=== PATIENT | female | born 1935 | race Caucasian/White ===

== ENCOUNTER → 2021-02-03 | Outpatient (CLI) | payer OTHER | END | disposition home or self-care (01) | LOC: LAB SHORT 11:44 → LAB 11:44 | DX: D48.5 Neoplasm of uncertain behavior of skin (principal) | CPT/HCPCS: 88305 ==

== ENCOUNTER 2021-05-13 22:09 | Emergency (ER) | payer OTHER ==
[~2021-05-13] VITALS: Ht 157.5 cm; Wt 71.7 kg
[2021-05-13 22:37] LABS: BASOPHILS ABSOLUTE AUTO 0.06 K/mm3 (0.00-0.23); BASOPHILS PERCENT AUTO 1 % (0-2); EOSINOPHILS ABSOLUTE AUTO 0.48 K/mm3 (0.00-0.68); EOSINOPHILS PERCENT AUTO 5 % (0-6); Hematocrit 37.2 % (33.0-51.0); IMMATURE GRAN ABSOLUTE AUTO 0.05 K/mm3 (0.00-0.10); IMMATURE GRAN PERCENT AUTO 1 % (0-1); LYMPHOCYTES ABSOLUTE AUTO 3.17 K/mm3 (0.84-5.20); LYMPHOCYTES PERCENT AUTO 32 % (21-46); MONOCYTES ABSOLUTE AUTO 0.81 K/mm3 (0.16-1.47); MONOCYTES PERCENT AUTO 8 % (4-13); Mean Corpuscular HGB 31.9 pg (26.0-34.0); Mean Corpuscular HGB Conc 34.9 g/dL (31.5-36.5); Mean Corpuscular Volume 91 fL (80-100); Mean Platelet Volume 9.3 fL (9.1-12.4); NEUTROPHILS PERCENT AUTO 55 % (41-73); Platelet Count 217 K/mm3 (150-400); RDW Coefficient Variation 11.5 % (11.7-14.2); RDW Standard Deviation 38.5 fL (35.1-46.3); Red Blood Cell Count 4.07 M/mm3 (3.80-5.20); White Blood Cell Count 10.07 K/mm3 (4.00-11.30)
[2021-05-13 23:21] LABS: Alanine Aminotransfer (ALT/SGP 31 U/L (12-78); Albumin, Blood 4.1 g/dL (3.4-5.0); Alk Phos 94 U/L (50-136); Anion Gap 7 mmol/L (6-16); Aspartate Aminotrans (AST/SGOT 20 U/L (12-37); Bilirubin, Total 0.2 mg/dL (0.1-1.0); Blood Urea Nitrogen 38 mg/dL (8-24); Bun/Creatinine Ratio 34.5 (12.0-20.0); CO2, Blood 23 mmol/L (21-32); Calcium, Blood 10.4 mg/dL (8.5-10.1); Chloride, Blood 103 mmol/L (98-108); Glomerular Filtration Rate 47 (60-); Glucose, Blood 122 mg/dL (70-99); Potassium, Blood 3.9 mmol/L (3.5-5.5); Sodium, Blood 133 mmol/L (136-145); Total Protein, Blood 8.1 g/dL (6.4-8.2); Troponin I <0.015 ng/mL (0.000-0.040)
[2021-05-13] MEDS ORDERED: SPIRONOLACTONE25 MG PO (23:22)
[2021-05-13] MEDS ORDERED: HYDHCL25 PO (23:22)
[2021-05-13] MEDS ORDERED: ERGO50000 PO (23:23)
[2021-05-13] MEDS ORDERED: METO100 PO (23:23)
[2021-05-13] MEDS ORDERED: HYDCHL25 PO (23:23)
[2021-05-13] MEDS ORDERED: SODBIC650 PO (23:24)
[2021-05-13] MEDS ORDERED: HYDRA50 PO (23:24)
[2021-05-13] MEDS ORDERED: LOSARTAN POTAS100 M1 PO (23:25)
[2021-05-13] MEDS ORDERED: Primidone50 MG PO (23:25)
== END 2021-05-14 01:05 | disposition home or self-care (01) ==
LOC: ER 22:09
PROVIDERS: Physician Assistant
DX: R07.89 Other chest pain (principal); I10 Essential (primary) hypertension; Z79.899 Other long term (current) drug therapy; Z87.891 Personal history of nicotine dependence
CPT/HCPCS: 36415; 71046; 80053; 84484; 85025; 85379; 93005; 93010; 99285-25

== ENCOUNTER → 2021-06-22 | Outpatient (CLI) | payer OTHER ==
[~2021-06-22] MED LIST: ERGO50000 PO; HYDCHL25 PO; HYDHCL25 PO; HYDRA50 PO; LOSARTAN POTAS100 M1 PO; METO100 PO; Primidone50 MG PO; SODBIC650 PO; SPIRONOLACTONE25 MG PO
[2021-06-22 17:14] LABS: Campylobacter Sp Not Detected (NOT DETECT); Cryptosporidium Not Detected (NOT DETECT); E. Coli O157 Not Detected (NOT DETECT); Enteroaggregative E. coli-EAEC Not Detected (NOT DETECT); Enteropathogenic E. coli-EPEC Not Detected (NOT DETECT); Enterotoxigenic E. coli-ETEC Not Detected (NOT DETECT); Plesiomonas Shigelloides Not Detected (NOT DETECT); Salmonella Sp Not Detected (NOT DETECT); Shiga Toxin-prod E. coli-STEC Not Detected (NOT DETECT); Shigella/Enteroin E. coli-EIEC Not Detected (NOT DETECT); Vibrio Cholerae Not Detected (NOT DETECT); Vibrio Sp Not Detected (NOT DETECT); Yersinia Enterocolitica Not Detected (NOT DETECT)
[2021-06-22 17:15] LABS: Adenovirus F 40/41 Not Detected (NOT DETECT); Astrovirus Not Detected (NOT DETECT); Cyclospora Cayetanensis Not Detected (NOT DETECT); Entamoeba Histolytica Not Detected (NOT DETECT); Giardia Lamblia Not Detected (NOT DETECT); Norovirus GI/GII Not Detected (NOT DETECT); Rotavirus A Not Detected (NOT DETECT); Sapovirus Not Detected (NOT DETECT)
== END ==
LOC: LAB SHORT 13:48 → LAB 13:48
PROVIDERS: Family Medicine
DX: R19.7 Diarrhea, unspecified (principal)
CPT/HCPCS: 0097U; 83993

== ENCOUNTER → 2021-12-01 | Outpatient (CLI) | payer OTHER ==
[2021-12-01 14:33] LABS: BASOPHILS ABSOLUTE AUTO 0.07 K/mm3 (0.00-0.23); BASOPHILS PERCENT AUTO 1 % (0-2); EOSINOPHILS ABSOLUTE AUTO 0.57 K/mm3 (0.00-0.68); EOSINOPHILS PERCENT AUTO 5 % (0-6); Hematocrit 36.7 % (33.0-51.0); IMMATURE GRAN ABSOLUTE AUTO 0.09 K/mm3 (0.00-0.10); IMMATURE GRAN PERCENT AUTO 1 % (0-1); LYMPHOCYTES ABSOLUTE AUTO 2.13 K/mm3 (0.84-5.20); LYMPHOCYTES PERCENT AUTO 20 % (21-46); MONOCYTES ABSOLUTE AUTO 0.97 K/mm3 (0.16-1.47); MONOCYTES PERCENT AUTO 9 % (4-13); Mean Corpuscular HGB 31.5 pg (26.0-34.0); Mean Corpuscular HGB Conc 35.4 g/dL (31.5-36.5); Mean Corpuscular Volume 89 fL (80-100); NEUTROPHILS ABSOLUTE AUTO 6.74 K/mm3 (1.96-9.15); NEUTROPHILS PERCENT AUTO 64 % (41-73); Platelet Count 237 K/mm3 (150-400); RDW Coefficient Variation 11.8 % (11.7-14.2); RDW Standard Deviation 37.7 fL (35.1-46.3); Red Blood Cell Count 4.13 M/mm3 (3.80-5.20); White Blood Cell Count 10.57 K/mm3 (4.00-11.30)
[2021-12-01 14:49] LABS: Bilirubin, Total 0.4 mg/dL (0.1-1.0); Bun/Creatinine Ratio 21.9 (12.0-20.0); Calcium, Blood 9.2 mg/dL (8.5-10.1); Creatinine, Blood 1.14 mg/dL (0.40-1.00); Globulin, Blood 4.1 g/dL (2.2-4.0); Magnesium, Blood 1.6 mg/dL (1.6-2.4); Potassium, Blood 4.2 mmol/L (3.5-5.5); Total Protein, Blood 8.1 g/dL (6.4-8.2)
== END | disposition home or self-care (01) ==
LOC: LAB SHORT 14:25 → LAB 14:25
PROVIDERS: Physician Assistant
DX: R53.83 Other fatigue (principal)
CPT/HCPCS: 80053; 83735; 83880; 84443; 85025

== ENCOUNTER → 2022-05-04 | Outpatient (CLI) | payer OTHER ==
[2022-05-04 12:15] LABS: Source, Urine Clean Catch
[2022-05-04 15:20] LABS: Appearance, Urine Clear (Clear); Bilirubin, Urine Neg (Neg); Blood, Urine 5+ (Neg); Color, Urine Yellow (P-Yellow); Glucose Qualitative, Urine Neg (Neg); Ketones, Urine Neg (Neg); Leukocyte Esterase, Urine Neg (Neg); Nitrite, Urine Neg (Neg); Protein, Urine 2+ (Neg); Urobilinogen, Urine NORM (Normal)
[2022-05-04 15:42] LABS: Bacteria Rare /hpf; Squamous Epithelial Cells Few /hpf (Few); White Blood Cells, Urine 0-2 /hpf (0-5)
== END | disposition home or self-care (01) ==
LOC: LAB 12:12 → LAB SHORT 12:12
PROVIDERS: Family Medicine
DX: R31.9 Hematuria, unspecified (principal)
CPT/HCPCS: 81001

== ENCOUNTER → 2022-06-30 | Outpatient (CLI) | payer OTHER | END | disposition home or self-care (01) | LOC: LAB SHORT 06:00 → LAB 06:00 → EDSTATUS 06-24 11:35 → LAB FUT 06-24 11:35 | PROVIDERS: Internal Medicine Nephrology | DX: N18.2 Chronic kidney disease, stage 2 (mild) (principal); D63.1 Anemia in chronic kidney disease; N25.81 Secondary hyperparathyroidism of renal origin; E55.9 Vitamin D deficiency, unspecified; R76.9 Abnormal immunological finding in serum, unspecified; R94.5 Abnormal results of liver function studies; R94.6 Abnormal results of thyroid function studies | CPT/HCPCS: 81050; 82530 ==

== ENCOUNTER 2022-11-04 15:42 | Emergency (ER) | payer OTHER ==
[~2022-11-04] VITALS: Ht 157.5 cm; Wt 72.6 kg
== END 2022-11-04 20:09 | disposition home or self-care (01) ==
LOC: ER 15:42
DX: R10.13 Epigastric pain (principal); R06.02 Shortness of breath; I11.0 Hypertensive heart disease with heart failure; I50.9 Heart failure, unspecified; Z87.891 Personal history of nicotine dependence; Z79.899 Other long term (current) drug therapy
CPT/HCPCS: 83880; 84484; 93005; 93010; 99284-25; J7030

== ENCOUNTER → 2022-11-04 | Outpatient (CLI) | payer OTHER ==
[2022-11-04 13:07] LABS: BASOPHILS ABSOLUTE AUTO 0.06 K/mm3 (0.00-0.23); BASOPHILS PERCENT AUTO 1 % (0-2); EOSINOPHILS ABSOLUTE AUTO 0.32 K/mm3 (0.00-0.68); EOSINOPHILS PERCENT AUTO 4 % (0-6); Hematocrit 36.4 % (33.0-51.0); Hemoglobin 13.3 g/dL (11.5-16.0); IMMATURE GRAN ABSOLUTE AUTO 0.06 K/mm3 (0.00-0.10); IMMATURE GRAN PERCENT AUTO 1 % (0-1); LYMPHOCYTES PERCENT AUTO 22 % (21-46); MONOCYTES ABSOLUTE AUTO 0.89 K/mm3 (0.16-1.47); MONOCYTES PERCENT AUTO 10 % (4-13); Mean Corpuscular HGB 31.7 pg (26.0-34.0); Mean Corpuscular HGB Conc 36.5 g/dL (31.5-36.5); Mean Corpuscular Volume 87 fL (80-100); Mean Platelet Volume 9.2 fL (9.1-12.4); NEUTROPHILS ABSOLUTE AUTO 5.67 K/mm3 (1.96-9.15); NEUTROPHILS PERCENT AUTO 63 % (41-73); Platelet Count 243 K/mm3 (150-400); RDW Coefficient Variation 11.7 % (11.7-14.2)
[2022-11-04 13:20] LABS: Albumin, Blood 4.4 g/dL (3.4-5.0); Bilirubin, Total 0.3 mg/dL (0.1-1.0); Bun/Creatinine Ratio 28.6 (12.0-20.0); Calcium, Blood 9.5 mg/dL (8.5-10.1); Creatinine, Blood 1.33 mg/dL (0.40-1.00); Globulin, Blood 4.2 g/dL (2.2-4.0); Potassium, Blood 4.2 mmol/L (3.5-5.5); Total Protein, Blood 8.6 g/dL (6.4-8.2)
== END | disposition home or self-care (01) ==
LOC: LAB SHORT 13:00 → LAB 13:00
PROVIDERS: Emergency Medicine
DX: R07.9 Chest pain, unspecified (principal)
CPT/HCPCS: 80053; 83690; 83880; 84484; 85025

== ENCOUNTER 2024-05-18 11:12 | Inpatient (IN) | payer OTHER ==
[~2024-05-18] VITALS: Ht 157.5 cm; Wt 72.4 kg
[~2024-05-18 11:12] MED LIST changes: +HYDRA25 PO; -HYDRA50 PO
[2024-05-18 11:48] LABS: BASOPHILS ABSOLUTE AUTO 0.04 K/mm3 (0.00-0.23); BASOPHILS PERCENT AUTO 0 % (0-2); EOSINOPHILS ABSOLUTE AUTO 0.01 K/mm3 (0.00-0.68); EOSINOPHILS PERCENT AUTO 0 % (0-6); Hemoglobin 12.3 g/dL (11.5-16.0); IMMATURE GRAN ABSOLUTE AUTO 0.06 K/mm3 (0.00-0.10); IMMATURE GRAN PERCENT AUTO 1 % (0-1); LYMPHOCYTES ABSOLUTE AUTO 0.55 K/mm3 (0.84-5.20); LYMPHOCYTES PERCENT AUTO 5 % (21-46); MONOCYTES ABSOLUTE AUTO 1.23 K/mm3 (0.16-1.47); MONOCYTES PERCENT AUTO 11 % (4-13); Mean Corpuscular HGB 31.5 pg (26.0-34.0); Mean Corpuscular HGB Conc 35.1 g/dL (31.5-36.5); Mean Corpuscular Volume 90 fL (80-100); Mean Platelet Volume 9.9 fL (9.1-12.4); NEUTROPHILS ABSOLUTE AUTO 8.88 K/mm3 (1.96-9.15); NEUTROPHILS PERCENT AUTO 82 % (41-73); Platelet Count 169 K/mm3 (150-400); RDW Coefficient Variation 12.4 % (11.7-14.2); RDW Standard Deviation 40.7 fL (35.1-46.3); White Blood Cell Count 10.77 K/mm3 (4.00-11.30)
[2024-05-18 11:48] LABS: Source, Urine Voided
[2024-05-18 11:50] LABS: Appearance, Urine Clear (Clear); Bilirubin, Urine Neg (Neg); Blood, Urine 1+ (Neg); Color, Urine Yellow (P-Yellow); Glucose Qualitative, Urine Neg (Neg); Ketones, Urine Neg (Neg); Leukocyte Esterase, Urine Neg (Neg); Nitrite, Urine Neg (Neg); Protein, Urine 2+ (Neg); Specific Gravity, Urine 1.015 (1.003-1.022); Urobilinogen, Urine NORM (Normal)
[2024-05-18 11:56] LABS: Bacteria Few /hpf; Hyaline Casts 0-2 /lpf (0-2); Squamous Epithelial Cells Few /hpf (Few); White Blood Cells, Urine 0-2 /hpf (0-5); Yeast/Fungi Urine Rare /hpf
[2024-05-18 12:07] LABS: Albumin, Blood 3.2 g/dL (3.4-5.0); Albumin/Globulin Ratio 0.8 (0.8-1.8); Bilirubin, Total 0.5 mg/dL (0.1-1.0); Bun/Creatinine Ratio 22.9 (12.0-20.0); Calcium, Blood 8.7 mg/dL (8.5-10.1); Creatinine, Blood 1.4 mg/dL (0.40-1.00); Globulin, Blood 4.2 g/dL (2.2-4.0); Potassium, Blood 3.9 mmol/L (3.5-5.5); Total Protein, Blood 7.4 g/dL (6.4-8.2)
[2024-05-18] MEDS ORDERED: Acetaminophen 500 MG Tab PO ONE (12:20)
[2024-05-18] MEDS ORDERED: NS 1,000 ML IV SCH ×2 (12:20→15:25)
[2024-05-18 12:28] LABS: Magnesium, Blood 1.7 mg/dL (1.6-2.4); Phosphorus, Blood 2.3 mg/dL (2.5-4.9)
[2024-05-18 13:53] LABS: Influenza A, PCR NEGATIVE (NEGATIVE); Influenza B, PCR NEGATIVE (NEGATIVE); Resp Syncytial Virus, PCR NEGATIVE (NEGATIVE); SARS-Cov-2 (COVID-19) PCR, MMC NEGATIVE (NEGATIVE)
[2024-05-18] MEDS ORDERED: Metoprolol Tartrate 1 MG/ML 5 ML VIAL IV PRN (14:15)
[2024-05-18] MEDS ORDERED: Vancomycin HCL 1,500 MG in NS 250 ML IV ONE (15:20)
[2024-05-18] MEDS ORDERED: Cefepime HCl 2,000 MG in NS 100 ML IV ONE (15:20)
[2024-05-18 17:43] LABS: Adenovirus Not Detected (NOT DETECT); Bordetella pertussis Not Detected (NOT DETECT); Chlamydophila pneumoniae Not Detected (NOT DETECT); Coronavirus 229E Not Detected (NOT DETECT); Coronavirus HKU1 Not Detected (NOT DETECT); Coronavirus NL63 Not Detected (NOT DETECT); Coronavirus OC43 Not Detected (NOT DETECT); Human Metapneumovirus Not Detected (NOT DETECT); Human Rhinovirus/Enterovirus Not Detected (NOT DETECT); Influenza A/2009-H1 Not Detected (NOT DETECT); Influenza A/H1 Not Detected (NOT DETECT); Influenza A/H3 Not Detected (NOT DETECT); Influenza B Not Detected (NOT DETECT); Mycoplasma pneumoniae Not Detected (NOT DETECT); Parainfluenza Virus 1 Not Detected (NOT DETECT); Parainfluenza Virus 2 Not Detected (NOT DETECT); Parainfluenza Virus 3 Not Detected (NOT DETECT); Parainfluenza Virus 4 Not Detected (NOT DETECT); Respiratory Syncytial Virus Not Detected (NOT DETECT); SARS-Cov-2 (COVID-19), BioFire Not Detected (NOT DETECT)
[2024-05-18 18:35] LABS: Automated CSF WBC Count 0.002 K/mm3 (0-5)
[2024-05-18 18:41] LABS: Automated CSF WBC Count 0.004 K/mm3 (0-5)
[2024-05-18 18:42] LABS: WBC Count, CSF 2 /mm3 (0-5); WBC Count, CSF 4 /mm3 (0-5)
[2024-05-18 18:43] LABS: RBC Count, CSF 1 /mm3 (0-0)
[2024-05-18 18:44] LABS: Appearance, CSF Clear (Clear); Color, CSF No Color (No Color)
[2024-05-18] MEDS ORDERED: Acetaminophen 325 MG TABLET PO PRN (18:45)
[2024-05-18 18:52] LABS: Appearance, CSF Clear (Clear); Color, CSF No Color (No Color); RBC Count, CSF 17 /mm3 (0-0)
[2024-05-18] MEDS ORDERED: Cefepime HCl 1,000 MG in NS 100 ML IV SCH (19:00)
[2024-05-18] MEDS ORDERED: Ampicillin Sod 2,000 MG in NS 100 ML IV SCH (19:00)
[2024-05-18] MEDS ORDERED: HyDROXyzine HCl 25 MG Tab PO SCH (21:00)
[2024-05-18] MEDS ORDERED: Primidone 50 MG Tab PO SCH (21:00)
[2024-05-18 21:28] VITALS: BP 137/50
[2024-05-18] MEDS ORDERED: PREG50 PO (22:21)
[2024-05-18] MEDS ORDERED: AMLO10 PO (22:22)
[2024-05-18] MEDS ORDERED: ATEN50 PO (22:23)
[2024-05-18] MEDS ORDERED: GLIP5ER PO ×2 (22:25→22:26)
[2024-05-18] MEDS ORDERED: FURO40 PO (22:27)
[2024-05-18 22:52] LABS: Cryptococcus Neoformans/Gattii Not Detected (NOT DETECT); Enterovirus Not Detected (NOT DETECT); Escherichia Coli K1 Not Detected (NOT DETECT); Haemophilus Influenza Not Detected (NOT DETECT); Herpes Simplex Virus 1 Not Detected (NOT DETECT); Herpes Simplex Virus 2 Not Detected (NOT DETECT); Human Herpesvirus 6 Not Detected (NOT DETECT); Human Parechovirus Not Detected (NOT DETECT); Listeria Monocytogenes Not Detected (NOT DETECT); Neisseria Meningitidis Not Detected (NOT DETECT); Streptococcus Agalactiae Not Detected (NOT DETECT); Streptococcus Pneumoniae Not Detected (NOT DETECT); Varicella Zoster Virus Not Detected (NOT DETECT)
[2024-05-18 23:29] VITALS: BP 124/49
--- NOTE | 2024-05-19 01:26 | NUR ---
ARRIVAL TO PCU/UPDATES: PT ARRIVED TO U-08 VIA [facility] AT APPROX 2120. STAFF SLID PT FROM [facility] TO BED. PT'S DAUGHTER & [id number] PRESENT ON ARRIVAL. NEURO: PT ALERT, ORIENTED X4 ALTHOUGH IS A POOR HISTORIAN. RELIES ON FAMILY MEMBERS TO DISCUSS MEDICAL HISTORY AND RECENT SYMPTOMS. PUPILS EQUAL, ROUND, REACTIVE TO LIGHT, 2MM BILAT. SPEECH IS MUMBLED, DIFFICULT TO UNDERSTAND AT TIMES; REPORTEDLY PT'S BASELINE DUE TO A TREMOR THAT HAS BEEN PRESENT X MANY YEARS. NUMBNESS/TINGLING TO BILAT LOWER EXTREMITIES, PT ENDORSES NEUROPATHY. GROUP HOME SUPERVISOR STRENGTH WEAK, LEFT SLIGHTLY WEAKER THAN RIGHT ON ASSESSMENT. CARDIAC: PT ARRIVES TO U W/O DILT GTT INFUSING, REPORTEDLY TURNED OFF IN ED DUE TO CONVERSION FROM AFIB TO NSR. HR 90'S, SINUS ON TELE. SBP 130'S, MAP >65. DENIES CHEST PAIN/PRESSURE. DENIES HX AFIB. PEDAL PULSES STRONG, BILAT 1+ EDEMA TO BLE NOTED. PT'S FAMILY STATES PT HAS NOT BEEN TAKING CARDIAC MEDICATIONS AT HOME DUE TO "BLOOD PRESSURE ISSUES." PT IS UNSURE IF SHE TOOK ANY MEDICATIONS PRIOR TO ARRIVING AT ED SHE LIVES ALONE AND WAS REPORTEDLY CONFUSED THIS AM. RESPIRATORY: SPO2 >90% ON 2L O2 VIA NC. ROOM AIR TRIAL W/ SPO2 86-89%. PT IS NORMALLY ON ROOM AIR AT HOME. LUNG SOUNDS CLEAR IN BILAT UPPER LOBES, DIM IN RLL, COARSE/DIM IN LLL. DRY RESEARCH DEVELOPMENT MANAGER WEAK COUGH NOTED. RESPIRATIONS ARE EVEN, UNLABORED AT REST. DYSPNEA W/ EXERTION. GI/: WNL. BT+ X4 QUADRANTS. ABD SOFT, NONTENDER ON PALPATION. LAST BM 05/17/24. PT CONTINENT, ABLE TO VOID ON BSC. URINE YELLOW/CLEAR W/O FOUL ODOR NOTED. SKIN: OVERALL INTACT. NO BRUISES, WOUNDS, OR PRESSURE INJURIES ON ADMISSION. SKIN APPEARS FLUSHED, WARM TO THE TOUCH. PT/FAMILY ORIENTED TO ROOM/UNIT/CALL LIGHT. EDUCATED ON FIRE SAFETY/IGNITION RISKS; NO IGNITION SOURCES PRESENT ON ADMISSION, PT IS A FORMER SMOKER BUT QUIT 40+ YEARS AGO. UPDATE: PT'S HR SUSTAINING 130'S FROM APPROX [id number]. EKG COMPLETED. IVP LOPRESSOR ADMINISTERED X1 PER EMAR W/O RATE IMPROVEMENT. PT ASYMPTOMATIC, SLEEPING IN BED. CALL TO RESIDENT MD. RESIDENT MD TO BEDSIDE AT APPROX 2345, PT'S HR SUSTAINING 100-110'S AT THAT TIME. ORDERS FOR MAG & PHOS LEVELS TO BE DRAWN W/ AM LABS, THIS RN TO CALL MD IF HR SUSTAINS >110. TELE SHOWS SINUS-ST AT THIS TIME W/ RATE 90'S AT REST. OF NOTE, PT ALSO W/ INCREASED ORAL TEMP OF 101.6. TYLENOL ADMINISTERED PER EMAR. RECHECK OF 100.1. NO OTHER NEEDS AT THIS TIME, CALL LIGHT IN REACH. DAUGHTER AT BEDSIDE.
[2024-05-19 03:41] LABS: BASOPHILS ABSOLUTE AUTO 0.03 K/mm3 (0.00-0.23); BASOPHILS PERCENT AUTO 0 % (0-2); EOSINOPHILS ABSOLUTE AUTO 0.02 K/mm3 (0.00-0.68); EOSINOPHILS PERCENT AUTO 0 % (0-6); Hematocrit 32.4 % (33.0-51.0); Hemoglobin 11.1 g/dL (11.5-16.0); IMMATURE GRAN ABSOLUTE AUTO 0.07 K/mm3 (0.00-0.10); IMMATURE GRAN PERCENT AUTO 1 % (0-1); LYMPHOCYTES ABSOLUTE AUTO 0.82 K/mm3 (0.84-5.20); LYMPHOCYTES PERCENT AUTO 9 % (21-46); MONOCYTES ABSOLUTE AUTO 1.11 K/mm3 (0.16-1.47); MONOCYTES PERCENT AUTO 12 % (4-13); Mean Corpuscular HGB Conc 34.3 g/dL (31.5-36.5); Mean Corpuscular Volume 91 fL (80-100); Mean Platelet Volume 9.7 fL (9.1-12.4); NEUTROPHILS ABSOLUTE AUTO 7.01 K/mm3 (1.96-9.15); NEUTROPHILS PERCENT AUTO 77 % (41-73); Platelet Count 149 K/mm3 (150-400); RDW Coefficient Variation 12.6 % (11.7-14.2); RDW Standard Deviation 42.2 fL (35.1-46.3); Red Blood Cell Count 3.58 M/mm3 (3.80-5.20); White Blood Cell Count 9.06 K/mm3 (4.00-11.30)
[2024-05-19 03:59] VITALS: BP 133/55
[2024-05-19 04:02] LABS: Alanine Aminotransfer (ALT/SGP 23 U/L (12-78); Albumin, Blood 2.7 g/dL (3.4-5.0); Albumin/Globulin Ratio 0.7 (0.8-1.8); Alk Phos 58 U/L (50-136); Anion Gap 14 mmol/L (3-11); Aspartate Aminotrans (AST/SGOT 30 U/L (12-37); Bilirubin, Total 0.4 mg/dL (0.1-1.0); Blood Urea Nitrogen 35 mg/dL (8-24); Bun/Creatinine Ratio 26.1 (12.0-20.0); CO2, Blood 21 mmol/L (21-32); Calcium, Blood 8.3 mg/dL (8.5-10.1); Chloride, Blood 106 mmol/L (98-108); Creatinine, Blood 1.34 mg/dL (0.40-1.00); Globulin, Blood 3.9 g/dL (2.2-4.0); Glomerular Filtration Rate 39 (60-); Glucose, Blood 180 mg/dL (70-99); Magnesium, Blood 1.8 mg/dL (1.6-2.4); Phosphorus, Blood 2.5 mg/dL (2.5-4.9); Potassium, Blood 3.6 mmol/L (3.5-5.5); Sodium, Blood 137 mmol/L (136-145); Total Protein, Blood 6.6 g/dL (6.4-8.2)
--- NOTE | 2024-05-19 05:16 | NUR ---
END OF SHIFT NOTE: SEE PREVIOUS NOTE FOR SHIFT DETAILS. PT'S HR HAS MAINTAINED 80-90'S THIS AM, SINUS ON TELE. BP STABLE. SPO2 >90% ON RA. TEMP HAS DECREASED TO 99.9 W/ TYLENOL. UP TO BSC TO VOID, 1P STAND/PIVOT TO COMMODE. DAUGHTER REMAINS AT BEDSIDE. NO OTHER NEEDS AT THIS TIME, CALL LIGHT IN REACH. WILL REPORT TO ONCOMING RN.
[2024-05-19 07:00] VITALS: BP 139/63
[2024-05-19 08:56] LABS: Anti-Xa UFH, PHA Monitoring <0.10 IU/mL; International Normalized Ratio 1.18; Prothrombin Time Results 12.5 Sec (9.7-11.5)
[2024-05-19] MEDS ORDERED: Metoprolol Tartrate 25 MG Tab PO SCH (09:00)
[2024-05-19] MEDS ORDERED: Enoxaparin 30 MG/0.3 ML SYR SC SCH (09:00)
[2024-05-19] MEDS ORDERED: Cefepime HCl 1,000 MG in NS 100 ML IV SCH (09:00)
[2024-05-19] MEDS ORDERED: Heparin Sodium,Porcine/0.5 NS 500 ML IV SCH (09:10)
[2024-05-19 11:58] VITALS: BP 139/56
[2024-05-19] MEDS ORDERED: NITR.4SL SL (12:01)
[2024-05-19] MEDS ORDERED: Estrace Vagin42.5 GM VAG (12:04)
--- NOTE | 2024-05-19 14:41 | NUR ---
Transfer of care. Pt alert, oriented, speech garbled at times. Tremors noted with movement. Pt up with sba in room. Pt reporting head, neck and back pain, medicated per emar. Pt febrile this am, medicated pt emar. Pt denies chest pain, nausea, dizziness and numb/tingling. Tele sinus, bp stable. Spo2 >90% on 1-2l o2 via nc. Abd, soft, nontender, +bt. Other vss. No other acute changes noted. Will continue to monitor. Report given to oncoming rn.
[2024-05-19 15:30] VITALS: BP 143/86
[2024-05-19] MEDS ORDERED: Heparin Sodium 5000 Units/ML 1ML MDV IV ONE ×2 (15:40→23:15)
[2024-05-19] MEDS ORDERED: Pantoprazole Sodium 40 MG Injection IV SCH (16:30)
[2024-05-19] MEDS ORDERED: Vancomycin HCL 1,000 MG in NS 250 ML IV ONE (18:00)
--- NOTE | 2024-05-19 18:19 | NUR ---
CARE ASSUMPTION/SHIFT SUMMARY CARE ASSUMED FROM KEYON Paulino RN THIS AFTERNOON. PT A&OX4. AFEBRILE THIS AFTERNOON. VSS. UP TO BSC W/ 1P ASSIST AND FWW TO VOID/HAVE SMALL BM. HEP GTT INFUSING PER EMAR. PT NAPPED THIS AFTERNOON. EATING DINNER IN RECLINER. CALL LIGHT IN REACH.
[2024-05-19 19:43] VITALS: BP 165/69
[2024-05-19] MEDS ORDERED: Ondansetron HCl 2 MG / ML 2ML Vial IV PRN (19:55)
[2024-05-19] MEDS ORDERED: Prochlorperazine Edisylate 10 mg Vial IV PRN (21:00)
--- NOTE | 2024-05-19 21:28 | NUR ---
PHYSICIAN CONTACT: PT C/O NAUSEA THIS EVENING. CALL PLACED TO RESIDENT X2. NEW ORDERS RECEIVED, SEE EMAR.
[2024-05-19 22:58] VITALS: BP 149/79
[2024-05-19] MEDS ORDERED: Dose Adjust by Pharmacy XX STA (23:14)
[2024-05-19] MEDS ORDERED: Diltiazem HCl 5 MG / ML 5ML Vial IV ONE (23:55)
[2024-05-20] VITALS (8 sets, daily range): BP systolic 111–181; BP diastolic 60–76
--- NOTE | 2024-05-20 00:55 | NUR ---
UPDATE: AT APPROX 2245, THIS RN NOTIFIED BY TELEMETRY THAT PT'S HR SUSTAINING 130-140'S. PT IS LAYING IN BED & IS DIAPHORETIC. AFEBRILE, BP STABLE. PT REPORTS FEELING "RESTLESS" AND "UNCOMFORTABLE". DENIES CHEST PAIN/PRESSURE/PALPITATIONS. ENDORSES HEAD/NECK/BACK PAIN. RESIDENT MD NOTIFIED, ORDER TO OBTAIN EKG. FOLLOWING EKG, MD TO BEDSIDE TO ASSESS. ORDER FOR IVP 10MG DILTIAZEM X1 NOW, SEE EMAR. FOLLOWING IVP PER EMAR, HR 90-100'S ON TELE, SINUS RHYTHM. BP STABLE AT THIS TIME. PT RESTING IN BED W/ SON AT BEDSIDE. CALL LIGHT IN REACH.
--- NOTE | 2024-05-20 05:23 | NUR ---
END OF SHIFT NOTE: SEE PREVIOUS NOTES FOR EVENTS OVERNIGHT. THERESA HAS NOT SLEPT OVERNIGHT. C/O HEADACHE, NECK PAIN, BODY PAIN WORSE THIS SHIFT; MODERATE RELIEF W/ TYLENOL. MENTATION REMAINS UNCHANGED, A/OX4 & ABLE TO CALL APPROPRIATELY TO COMMUNICATE NEEDS. RESTLESSNESS HAS VISIBLY IMPROVED W/ HR IMPROVEMENT. HR 80-100'S FOLLOWING ADMINISTRATION OF IVP DILTIAZEM, SINUS-SINUS TACH ON TELE. SBP 130-160'S, CONTINUES TO DENY CHEST PAIN/PRESSURE. SPO2 >90% ON 2L VIA NC. PT REPORTS SOB WHILE LYING FLAT, IMPROVEMENT W/ HOB ELEVATED/REPOSITIONING. AFEBRILE OVERNIGHT. UP TO BSC W/ 1P ASSIST. >1300ML URINE OUTPUT, 4 BM'S. NAUSEA HAS RESOLVED FOLLOWING ADMINISTRATION OF COMPAZINE PER EMAR. HEPARIN GTT INFUSING AT 19 U/KG/HR, MANAGED BY PHARMACY. NO OTHER NEEDS AT THIS TIME. PT IS RESTING IN BED WATCHING TV. CALL LIGHT IN REACH, WILL REPORT TO ONCOMING RN.
[2024-05-20 05:32] LABS: BASOPHILS ABSOLUTE AUTO 0.04 K/mm3 (0.00-0.23); BASOPHILS PERCENT AUTO 1 % (0-2); EOSINOPHILS ABSOLUTE AUTO 0.19 K/mm3 (0.00-0.68); EOSINOPHILS PERCENT AUTO 2 % (0-6); Hemoglobin 10.9 g/dL (11.5-16.0); IMMATURE GRAN ABSOLUTE AUTO 0.09 K/mm3 (0.00-0.10); IMMATURE GRAN PERCENT AUTO 1 % (0-1); LYMPHOCYTES ABSOLUTE AUTO 1.03 K/mm3 (0.84-5.20); LYMPHOCYTES PERCENT AUTO 13 % (21-46); MONOCYTES ABSOLUTE AUTO 0.93 K/mm3 (0.16-1.47); MONOCYTES PERCENT AUTO 12 % (4-13); Mean Corpuscular HGB Conc 34.1 g/dL (31.5-36.5); Mean Corpuscular Volume 91 fL (80-100); Mean Platelet Volume 9.4 fL (9.1-12.4); NEUTROPHILS ABSOLUTE AUTO 5.62 K/mm3 (1.96-9.15); NEUTROPHILS PERCENT AUTO 71 % (41-73); Platelet Count 171 K/mm3 (150-400); RDW Coefficient Variation 12.7 % (11.7-14.2); RDW Standard Deviation 41.9 fL (35.1-46.3); Red Blood Cell Count 3.52 M/mm3 (3.80-5.20)
[2024-05-20] MEDS ORDERED: Dose Adjust by Pharmacy XX STA (06:00)
[2024-05-20 06:02] LABS: Albumin, Blood 2.6 g/dL (3.4-5.0); Albumin/Globulin Ratio 0.6 (0.8-1.8); Bilirubin, Total 0.4 mg/dL (0.1-1.0); Bun/Creatinine Ratio 21.3 (12.0-20.0); Calcium, Blood 8.8 mg/dL (8.5-10.1); Creatinine, Blood 0.98 mg/dL (0.40-1.00); Globulin, Blood 4.1 g/dL (2.2-4.0); Potassium, Blood 3.6 mmol/L (3.5-5.5); Total Protein, Blood 6.7 g/dL (6.4-8.2)
[2024-05-20] MEDS ORDERED: Metoprolol Tartrate 50 MG Tab PO SCH (08:00)
[2024-05-20] MEDS ORDERED: Enoxaparin 80 MG/0.8 ML SYR SC SCH (09:00)
[2024-05-20] MEDS ORDERED: Pregabalin 75 MG Cap PO SCH (10:00)
[2024-05-20] MEDS ORDERED: Pregabalin 50 MG Capsule PO SCH (11:00)
[2024-05-20] MEDS ORDERED: AmLODIPine Besylate 5 MG Tab PO SCH (14:00)
--- NOTE | 2024-05-20 14:14 | NUR ---
Noted peaked t wave per [employer] representative, notified Dr Rangel, new orders for EKG, placed in chart. Will continue to monitor.
[2024-05-20 17:34] LABS: Vancomycin, Random 8.7 ug/mL
--- NOTE | 2024-05-20 17:40 | NUR ---
Shift Summary Pt alert, oriented x4; pt continues to have mumbled speech, tremors less pronounced today then yesterday. Pt requesting her pregabalin, notified Dr Rangel, pt stating recent dose change, notified Dr Rangel, new orders. Pt BP trending up, notified Dr Rangel, new order, administered, pt bp trending down. Pt reporting pain to head, neck and back, medicated per emar. Pt denies chest pain/pressure, nausea, dizziness and numb/tingling. Tele sinus bbb; noted peaked t waves on tele this afternoon, EKG per orders. Spo2 >90% on 2l o2 via nc, titrated down to ra. Abd soft, nontender, +bt. Other vss. Pt remain afebrile. No other acute changes noted. Will continue to monitor.
[2024-05-20] MEDS ORDERED: Vancomycin HCL 1,000 MG in NS 250 ML IV SCH (18:05)
[2024-05-20] MEDS ORDERED: Vancomycin HCL 1,250 MG in NS 250 ML IV SCH (18:30)
[2024-05-20] MEDS ORDERED: Cefepime HCl 2,000 MG in NS 100 ML IV SCH (21:00)
--- NOTE | 2024-05-20 21:51 | NUR ---
ASSUMPTION OF CARE AFTER RECEIVING REPORT FROM KEYON MOFFETT, THIS RN ASSUMED CARE AT APPROX 1915. PATIENT ALERT AND ORIENTED X4. FAMILY AT BEDSIDE. SOFT, MUMBLED SPEECH BASELINE - COMMUNICATES NEEDS EFFECTIVELY. MOVES ALL EXTREMITIES EQUALLY - IS A ONE PERSON ASSIST TO BSC, CHAIR. PERRLA. AFEBRILE. REPORTING HEADACHE AND NECK/BACK PAIN - MEDICATED PER EMAR WITH PO TYLENOL WITH REPORTED RELIEF. TELEMETRY SHOWING SINUS 80s. INITIAL SBP 180s - HAS SINCE DECREASED TO 160s. PATIENT DENIES CHEST PAIN, PRESSURE. AROUND 2029, PATIENTs RATE SUSTAINING 140s. ASYMPTOMATIC - PO METOPROLOL ADMINISTERED PER EMAR. TELEMETRY ALARMING ST ELEVATION - DENIES CHEST PAIN, PRESSURE. MD ROUNDING ON UNIT - DISCUSSED ELEVATED HR AND TELEMETRY ALARM. RECEIVED INSTRUCTION TO ADMINISTER ORDERED IV METOPROLOL PUSH. NO EKG ORDER RECEIVED. PATIENTs HEART RATE DID LOWER TO 90s-100s WITHOUT INTERVENTION. MD AWARE - CONTINUE TO MONITOR. ON 2L VIA NC, SATs >90%. IS MILDLY DYSPNEIC WITH MOBILITY - EASES AT REST. REPOSITIONS HERSELF INDEPENDENTLY IN BED. CALL LIGHT IN REACH. -
[2024-05-21] VITALS (7 sets, daily range): BP systolic 163–177; BP diastolic 62–72
--- NOTE | 2024-05-21 03:31 | NUR ---
PATIENTs SBP SUSTAINING 170s-180s. PATIENT SLEEPING, ASYMPTOMATIC OF HTN. MD ACOSTA CONTACTED - RECEIVED ORDER TO ADMINISTER 0900 SCHEDULED 5MG NORVASC NOW AND TO RECHECK IN ONE HOUR. WILL ADMINISTER PER EMAR.
[2024-05-21 04:23] LABS: BASOPHILS ABSOLUTE AUTO 0.02 K/mm3 (0.00-0.23); BASOPHILS PERCENT AUTO 0 % (0-2); EOSINOPHILS ABSOLUTE AUTO 0.27 K/mm3 (0.00-0.68); EOSINOPHILS PERCENT AUTO 4 % (0-6); Hematocrit 31.9 % (33.0-51.0); Hemoglobin 10.6 g/dL (11.5-16.0); IMMATURE GRAN ABSOLUTE AUTO 0.06 K/mm3 (0.00-0.10); IMMATURE GRAN PERCENT AUTO 1 % (0-1); LYMPHOCYTES ABSOLUTE AUTO 1.35 K/mm3 (0.84-5.20); LYMPHOCYTES PERCENT AUTO 21 % (21-46); MONOCYTES ABSOLUTE AUTO 0.64 K/mm3 (0.16-1.47); MONOCYTES PERCENT AUTO 10 % (4-13); Mean Corpuscular HGB 30.5 pg (26.0-34.0); Mean Corpuscular HGB Conc 33.2 g/dL (31.5-36.5); Mean Corpuscular Volume 92 fL (80-100); Mean Platelet Volume 9.6 fL (9.1-12.4); NEUTROPHILS PERCENT AUTO 64 % (41-73); Platelet Count 204 K/mm3 (150-400); RDW Coefficient Variation 12.5 % (11.7-14.2); RDW Standard Deviation 41.8 fL (35.1-46.3); Red Blood Cell Count 3.48 M/mm3 (3.80-5.20); White Blood Cell Count 6.44 K/mm3 (4.00-11.30)
[2024-05-21 04:49] LABS: Albumin, Blood 2.5 g/dL (3.4-5.0); Albumin/Globulin Ratio 0.6 (0.8-1.8); Bilirubin, Total 0.3 mg/dL (0.1-1.0); Bun/Creatinine Ratio 19.1 (12.0-20.0); Calcium, Blood 9.1 mg/dL (8.5-10.1); Creatinine, Blood 0.94 mg/dL (0.40-1.00); Globulin, Blood 4.3 g/dL (2.2-4.0); Potassium, Blood 3.7 mmol/L (3.5-5.5); Total Protein, Blood 6.8 g/dL (6.4-8.2)
--- NOTE | 2024-05-21 05:41 | NUR ---
SHIFT SUMMARY NO ACUTE EVENTS SINCE PREVIOUS NOTES. PATIENT SLEPT T/O NIGHT - EASILY AROUSABLE WITH VERBAL STIMULI. AFEBRILE. BACK/NECK PAIN MANAGED PER EMAR WITH PO TYLENOL. TELEMETRY SHOWING SINUS 90s. RATE 70s-80s WITH SLEEP. NO FURTHER EPISODES OF RATE INCREASES TO 140s. HTN IMPROVED SINCE EARLY ADMINISTRATION OF 5MG NORVASC - SBP 160s. DENIES CHEST PAIN, PRESSURE. ON 2-3L VIA NC T/O NIGHT. UP TO BSC WITH SBA. VOIDING. NO BM THIS SHIFT. REPOSITIONING HERSELF INDEPENDENTLY IN BED. FAMILY AT BEDSIDE T/O NIGHT. CALL LIGHT IN REACH. WILL CONTINUE TO MONITOR AND REPORT TO ONCOMING RN.
[2024-05-21] MEDS ORDERED: Losartan Potassium 50 MG Tab PO SCH (12:00)
--- NOTE | 2024-05-21 15:38 | NUR ---
SHIFT SUMMARY: NEURO: PT A&OX4. FOLLOWDS COMMANDS. REPORTED A HEADACHE AND BODY ACHE THAT WHITE RELIEVED WITH TYLENOL. NO OTHER NEURO SYMPTOMS. CARDIAC: PT NRS WITH OCCASIONAL PVC. DENIES ANY CP OR SOB. RESP: PT ON 2L NC. PT APPEARS TO BE SOB BUT DENIES SOB. ONLY WITH ACTIVITY. GI/: WNL. PT GOT UP TO THE BSC SEVERAL TIMES WITH SBA. NO SIGNIFICANT CHANGES HAPPENED DURING THIS SHIFT. REPORT WAS CALLED TO ROOM 312 RN AND PT WAS TRANSPORTED TO MEDICAL FLOOR VIA WHEELCHAIR WITH BELONGINGS BY DIGITAL COMMUNITY MANAGER AT 1520.
--- NOTE | 2024-05-21 18:20 | NUR ---
Pt transfer from PCU at 1500, VSS, denies any pain, denies SOB, ambulates with 1x assist and walker, on 2L NC. Lungs diminished, heart regular, NS with PVCs on tele, bowel sounds normative, contenten of urine. Pt can make needs known, call manzano in hand, bed in lowest position.
[2024-05-21] MEDS ORDERED: ERGO50000 PO (22:56)
[2024-05-22] VITALS (8 sets, daily range): BP systolic 156–182; BP diastolic 66–94
[2024-05-22 05:09] LABS: BASOPHILS ABSOLUTE AUTO 0.03 K/mm3 (0.00-0.23); BASOPHILS PERCENT AUTO 1 % (0-2); EOSINOPHILS ABSOLUTE AUTO 0.35 K/mm3 (0.00-0.68); EOSINOPHILS PERCENT AUTO 5 % (0-6); Hematocrit 33.5 % (33.0-51.0); Hemoglobin 11.3 g/dL (11.5-16.0); IMMATURE GRAN ABSOLUTE AUTO 0.08 K/mm3 (0.00-0.10); IMMATURE GRAN PERCENT AUTO 1 % (0-1); LYMPHOCYTES ABSOLUTE AUTO 1.41 K/mm3 (0.84-5.20); LYMPHOCYTES PERCENT AUTO 22 % (21-46); MONOCYTES ABSOLUTE AUTO 0.62 K/mm3 (0.16-1.47); MONOCYTES PERCENT AUTO 10 % (4-13); Mean Corpuscular HGB 30.5 pg (26.0-34.0); Mean Corpuscular HGB Conc 33.7 g/dL (31.5-36.5); Mean Corpuscular Volume 90 fL (80-100); Mean Platelet Volume 9.4 fL (9.1-12.4); NEUTROPHILS ABSOLUTE AUTO 4.01 K/mm3 (1.96-9.15); NEUTROPHILS PERCENT AUTO 62 % (41-73); Platelet Count 241 K/mm3 (150-400); RDW Coefficient Variation 12.2 % (11.7-14.2); Red Blood Cell Count 3.71 M/mm3 (3.80-5.20)
[2024-05-22 05:35] LABS: Albumin, Blood 2.7 g/dL (3.4-5.0); Albumin/Globulin Ratio 0.6 (0.8-1.8); Bilirubin, Total 0.3 mg/dL (0.1-1.0); Bun/Creatinine Ratio 21.7 (12.0-20.0); Calcium, Blood 9.2 mg/dL (8.5-10.1); Creatinine, Blood 0.97 mg/dL (0.40-1.00); Globulin, Blood 4.3 g/dL (2.2-4.0); Potassium, Blood 3.7 mmol/L (3.5-5.5)
[2024-05-22] MEDS ORDERED: AmLODIPine Besylate 5 MG Tab PO ONE (12:00)
[2024-05-22] MEDS ORDERED: Insulin Human Lispro 100 Units/ML 3ML Syringe SC SCH (16:30)
[2024-05-22] MEDS ORDERED: Acetaminophen 325 MG TABLET PO PRN (16:55)
[2024-05-22 17:53] LABS: Vancomycin, Trough 11.3 ug/mL (5.0-10.0)
--- NOTE | 2024-05-22 20:08 | NUR ---
SHIFT SUMMARY: PT A/O X4. PLEASANT AND COOPERATIVE WITH CARE. PT C/O BACK AND HEADACHE THIS SHIFT. MEDICATED PER EMAR. SPOKE WITH DR. MCWILLIAMS REGARDING BS CHECKS DAUGHTER WAS WORRIED ABOUT SUGAR LEVELS WHILE IN HOSPITAL. NEW ORDER PLACED FOR AC/HS CHECKS AND LOW SLIDING INSULIN. COVERAGE NOT NEEDED THIS SHIFT. PT REMAINS ON 2L NC MAINTAINING SATS >90%. DR. MCWLILIAMS AWARE OF HYPERTENSION. ONE TIME DOSE AMLODIPINE PROVIDED BUT STILL REMAINED ELEVATED. PT/OT WORKING WITH PT. CURRENTLY ONE PERSON ASSIST c FWW AND GB. CALL LIGHT IN REACH. BED IN LOWEST POSITION.
[2024-05-22] MEDS ORDERED: Losartan Potassium 50 MG Tab PO SCH (21:00)
--- NOTE | 2024-05-22 21:55 | NUR ---
HOSPITALIST CONTACTED. PATIENTS BLOOD PRESSURE ELEVATED-SEE VITALS. CONTACTED AND NOTIFIED OF PATIENTS BLOOD PRESSURE. DR. CLOUD TO LOOK AT PATIENTS CHART AND ADDRESS PATIENTS B/P MEDICATIONS IF INDICATED.
[2024-05-22] MEDS ORDERED: HydrALAZINE HCl 20 MG / ML 1ML Vial IV PRN (22:00)
--- NOTE | 2024-05-23 | NUR ---
PATIENT C/O PAIN TO RIB CAGE, LOWER BACK, AND LEGS. PATIENT RATED PAIN AT 7/10. PATIENT NOT DUE FOR TYLENOL D/T RECENT DOSE. PATIENT REQUESTED SOMETHING FOR PAIN. 0003- HOSPITALIST CONTACTED AND NOTIFIED OF PATIENTS PAIN. DR. KUMARI ORDERED FOR FENTANYL 25-50MCG'S Q4 HOURS NEEDED FOR PAIN.
[2024-05-23] MEDS ORDERED: FentaNYL Citrate 50 MCG/ML 2 ML Injection IV PRN (00:05)
[2024-05-23 03:39] VITALS: BP 175/71
--- NOTE | 2024-05-23 06:06 | NUR ---
SHIFT SUMMARY. PATIENT IS A&O X3-4. PATIENT IS PLEASANT AND COOPERATIVE WITH CARE. PATIENT IS ABLE TO MAKE HER NEEDS KNOWN. PATIENT EXPERIENCING HYPERTENSION THIS SHIFT-SEE ORDERS AND VITALS. PATIENTS SON IN TO VISIT LATER IN THE SHIFT-SON IN ROOM ON PHONE WITH FEMALE VIA SPEAKER PHONE-PATIENT GAVE VERBAL PERMISSION FOR THIS RN TO ANSWER QUESTIONS REGARDING PATIENT. FEMALE ON PHONE ASKING HOW OFTEN WE ARE CHECKING B/P AND SOUNDED UPSET THAT WE DO NOT CHECK B/P PROTOCOL EVERY 4 HOURS-THIS RN EXPLAINED THAT WE DO NOT HAVE AN ORDER TO CHECK B/P Q4H AND THAT OUR PROTOCOL IS 2X A SHIFT UNLESS ADDITIONAL B/P ARE NEEDED. PATIENT C/O PAIN UNRELIEVED BY TYLENOL-HOSPITALIST CONTACTED AND NOTIFIED-SEE PREVIOUS NOTES. PATIENTS SON STAYED THE NIGHT WITH PATIENT. BED IS LOCKED IN THE LOWEST POSITION WITH CALL LIGHT IN REACH. CARE IS ONGOING
[2024-05-23 07:17] VITALS: BP 186/78
[2024-05-23 07:29] LABS: BASOPHILS ABSOLUTE AUTO 0.05 K/mm3 (0.00-0.23); BASOPHILS PERCENT AUTO 1 % (0-2); EOSINOPHILS ABSOLUTE AUTO 0.37 K/mm3 (0.00-0.68); EOSINOPHILS PERCENT AUTO 5 % (0-6); Hematocrit 37.1 % (33.0-51.0); Hemoglobin 12.6 g/dL (11.5-16.0); IMMATURE GRAN ABSOLUTE AUTO 0.21 K/mm3 (0.00-0.10); IMMATURE GRAN PERCENT AUTO 3 % (0-1); LYMPHOCYTES ABSOLUTE AUTO 1.62 K/mm3 (0.84-5.20); LYMPHOCYTES PERCENT AUTO 21 % (21-46); MONOCYTES ABSOLUTE AUTO 0.68 K/mm3 (0.16-1.47); MONOCYTES PERCENT AUTO 9 % (4-13); Mean Corpuscular HGB 30.7 pg (26.0-34.0); Mean Corpuscular Volume 90 fL (80-100); NEUTROPHILS ABSOLUTE AUTO 4.69 K/mm3 (1.96-9.15); NEUTROPHILS PERCENT AUTO 61 % (41-73); Platelet Count 284 K/mm3 (150-400); RDW Coefficient Variation 12.2 % (11.7-14.2); RDW Standard Deviation 40.1 fL (35.1-46.3); Red Blood Cell Count 4.11 M/mm3 (3.80-5.20); White Blood Cell Count 7.62 K/mm3 (4.00-11.30)
[2024-05-23 07:48] LABS: Albumin, Blood 2.9 g/dL (3.4-5.0); Albumin/Globulin Ratio 0.6 (0.8-1.8); Bilirubin, Total 0.5 mg/dL (0.1-1.0); Bun/Creatinine Ratio 18.3 (12.0-20.0); Calcium, Blood 9.3 mg/dL (8.5-10.1); Creatinine, Blood 0.87 mg/dL (0.40-1.00); Globulin, Blood 4.6 g/dL (2.2-4.0); Potassium, Blood 3.9 mmol/L (3.5-5.5); Total Protein, Blood 7.5 g/dL (6.4-8.2)
[2024-05-23] MEDS ORDERED: AmLODIPine Besylate 5 MG Tab PO SCH (09:00)
[2024-05-23 10:31] VITALS: BP 161/73
[2024-05-23] MEDS ORDERED: GlipiZIDE 5 MG TabCR PO SCH (11:10)
[2024-05-23] MEDS ORDERED: Diazepam 5 MG Tab PO PRN (11:10)
[2024-05-23 14:25] VITALS: BP 166/63
[2024-05-23] MEDS ORDERED: HydrALAZINE HCl 20 MG / ML 1ML Vial IV PRN (15:25)
[2024-05-23] MEDS ORDERED: NS 250 ML IV PRN (17:40)
--- NOTE | 2024-05-23 18:45 | NUR ---
SUMMARY- PT A/O X4, USES CALL LIGHT AND COMMUNICATES NEEDS APPROPRIATELY. BP HAS BEEN ELEVATED SBP 180'S AM BEFORE BP MEDS AND 160'S AFTER MEDS. TELE SINUS TACH 100'S, OCC PVC, DENIES CHEST PAIN. PT HAVING RIB CAGE PAIN AND BACK PAIN CONTROLLED WITH TYLENOL. PT LUNGS CLEAR, FAINT CX L BASE. OCC UPPER WHEEZE. PT DENIES SOB. PT WEANED OFF OXYGEN TODAY AND RESP PERFORMED HOME O2 EVAL, PT ABLE TO PERFORM ALL ACTIVITY ON ROOM AIR. BLOOD SUGARS IMPROVED AFTER PT STARTED BACK ON GLUCOTROL. COMPLAINED OF LITTLE SLEEP THE NIGHT BEFORE, DR HAINES ORDERED VALIUM HS PRN FOR SLEEP PT STATES SHE HAS TAKEN THIS IN THE PAST. PT AMBULATES TO BATHROOM SBA, AMBULATED IN [place] WITH R.T. DURING ASSESSMENT WITH NO SOB. WILL REPROT TO KAMLESH MOFFETT
[2024-05-23 18:59] VITALS: BP 151/71
[2024-05-23] MEDS ORDERED: Metoprolol Tartrate 50 MG Tab PO SCH (21:00)
[2024-05-23] MEDS ORDERED: Losartan Potassium 50 MG Tab PO SCH (21:00)
[2024-05-23 22:56] VITALS: BP 174/80
[2024-05-24 03:03] VITALS: BP 167/72
--- NOTE | 2024-05-24 03:21 | NUR ---
PATIENT REPORTS THAT SHE FEELS LIKE HER BLOOD GLUCOSE IS LOW. THIS RN OBTAINED A SPOT CBG CHECK. PATIENTS BLOOD GLUCOSE 124. PATIENT APPEARED CLAMMY. PATIENT OFFERED A SNACK BUT WOULD LIKE 4OZ OF APPLE JUICE. PATIENT PROVIDED WITH APPLE JUICE. PATIENT REPORTS FEELING HOT-NO TEMPERATURE NOTED.
--- NOTE | 2024-05-24 04:05 | NUR ---
SHIFT SUMMARY: PT ALERT ORIENTED. GETS UP WITH SBA AND WALKER AND AMBULATES TO THE BATHROOM. C/O GENERALIZED AND BACK PAIN. MEDICATED WITH TYLENOL. C/O DIFFICULTY FALLING ASLEEP AND MEDICATED WITH VALIUM. PT SLEPT WELL. BP WAS 174/80 AT 0000 VALIUM WAS GIVEN AND AT 0400 IT WAS 167/72. SHE C/O FEELING LIKE HER BLOOD SUGAR WAS RUNNING LOW. TOOK HER BLOOD SUGAR AND IT WAS 124. SHE STATED THAT SHES JUST VERY HOT AND SLIGHTLY CLAMMY. FAN WAS PUT IN HER ROOM AND SHE STATED SHE FELT BETTER. PLAN IS FOR HER TO DC TO HOME TODAY WITH HER FAMILY. LUNG SOUNDS CLEAR WITH NO C/O SOB. ON RA AT THIS TIME AND IS SATTING 94-95%. SHES RESTING IN BED AT THIS TIME WITH BED ALARM ON AND CALL LIGHT IN REACH.
[2024-05-24 07:19] VITALS: BP 193/85
[2024-05-24] MEDS ORDERED: AmLODIPine Besylate 5 MG Tab PO SCH ×3 (09:00→11:30)
[2024-05-24 10:57] VITALS: BP 181/74
[2024-05-24 11:10] VITALS: BP 180/79
[2024-05-24] MEDS ORDERED: HydrALAZINE HCl 25 MG Tab PO SCH (11:30)
[2024-05-24 12:43] VITALS: BP 166/68
--- NOTE | 2024-05-24 13:00 | NUR ---
BP 166/68. NSR @ 98 PER SEED TRUCKER. CALL TO DR HAINES, PT OK TO D/C.
[2024-05-24] MEDS ORDERED: Lopressor 50 mg50 MG PO (14:03)
--- NOTE | 2024-05-24 15:35 | NUR ---
PT DISCHARGED WITH INSTRUCTIONS, FAMILY PRESENT TO ASK QUESTIONS. RX FA[facility]ED TO [facility]. PT STATES SHE WON'T TAKE METOPROLOL TARTRATE, SHE WILL CONT ATENELOL DR GILMORE PERSCRIBED FOR BP. INSTRUSTION ON TAKING BP AND HR BEFORE MEDS. INSTRUCTION ON FLUTTER/I.S USE. WHEELCHAIR OUT TO PRIVATE CAR
== END 2024-05-24 15:25 | disposition home or self-care (01) | DRG 871 ==
LOC: ER 11:12 → ERHOLD 18:20 → MEDS 18:20 → PCU 21:19 → MEDS 05-21 15:52
PROVIDERS: Emergency Medicine; Student in an Organized Health Care Education/Training Program; ADMIT Internal Medicine
PROC: 009U3ZZ Drainage of Spinal Canal, Percutaneous Approach (ICD-10-PCS; principal; 2024-05-18)
PROC: 3E03329 Introduction of Other Anti-infective into Peripheral Vein, Percutaneous Approach (ICD-10-PCS; 2024-05-18)
DX: A41.9 Sepsis, unspecified organism (principal); G93.41 Metabolic encephalopathy; J18.9 Pneumonia, unspecified organism; J96.01 Acute respiratory failure with hypoxia; J91.8 Pleural effusion in other conditions classified elsewhere; I48.92 Unspecified atrial flutter; I50.32 Chronic diastolic (congestive) heart failure; N17.9 Acute kidney failure, unspecified; E11.9 Type 2 diabetes mellitus without complications; I11.0 Hypertensive heart disease with heart failure; R25.1 Tremor, unspecified; E27.9 Disorder of adrenal gland, unspecified; Z79.899 Other long term (current) drug therapy; Z87.891 Personal history of nicotine dependence; Z90.49 Acquired absence of other specified parts of digestive tract; Z98.890 Other specified postprocedural states; Z90.710 Acquired absence of both cervix and uterus
CPT/HCPCS: 0202U; 0241U; 36415; 62270; 70450; 71045; 71046; 71260; 80053; 80202; 81001; 82945; 82947; 83605; 83735; 84100; 84145; 84157; 84484; 85025; 85520; 85610; 87040; 87070; 87205; 87483; 89051; 93005; 93010; 93306; 94760; 94761; 94762; 96365-59; 96366-59; 96368; 96375-59; 96376-59; 97110; 97116; 97162; 97165; 97530; 97535; 99285-25; A9270; J0360; J0692; J0780; J1644; J1650; J2405; J2470; J3010; J3370; J7030; J7050; Q9967